=== PATIENT | male | born 1990 | race Caucasian/White ===

== ENCOUNTER 2018-12-09 18:14 | Emergency (ER) | payer OTHER ==
[~2018-12-09] VITALS: Ht 170.2 cm; Wt 70.0 kg
[~2018-12-09 18:14] MED LIST: CEPH-443 PO
[2018-12-09 18:16] VITALS: Ht 170.2 cm; Wt 70.0 kg
[2018-12-09] MEDS ORDERED: CHLORDIAZEPOXIDE 25 MG CAP PO ONE (19:00)
[2018-12-09 19:20] VITALS: BP 133/82; PULSE 72; RESP 16
== END 2018-12-09 19:21 ==
LOC: E/R 18:14
DX: S90.111A Contusion of right great toe without damage to nail, initial encounter (principal); R40.2142 Coma scale, eyes open, spontaneous, at arrival to emergency department; R40.2362 Coma scale, best motor response, obeys commands, at arrival to emergency department; R40.2252 Coma scale, best verbal response, oriented, at arrival to emergency department; L60.0 Ingrowing nail; F17.210 Nicotine dependence, cigarettes, uncomplicated; W01.0XXA Fall on same level from slipping, tripping and stumbling without subsequent striking against object, initial encounter; Y92.9 Unspecified place or not applicable
CPT/HCPCS: 73630